=== PATIENT | male | born 1955 | race Caucasian/White ===

== ENCOUNTER → 2023-08-17 12:35 | Outpatient (CLI) | payer OTHER, SELFPAY ==
--- NOTE | 2023-08-17 12:40 | DI.RAD.S_ITS ---
PROCEDURE: XR KNEE LT 3V INDICATIONS: Left knee pain and swelling x 2 weeks, worse sup/med aspect TECHNIQUE: 3 views of the knee were acquired. COMPARISON: None. FINDINGS: Bones: No fractures or dislocations. Osteophytic lipping. No suspicious bony lesions. Soft tissues: Small joint effusion. No suspicious soft tissue calcifications. IMPRESSION: No acute osseous abnormality. Small joint effusion. Mild degenerative changes. Dictated by: Pipo Velasquez M.D. on 08/17/2023 at 13:14 Approved by: Pipo Velasquez M.D. on 08/17/2023 at 13:15
== END ==
PROVIDERS: Visit Provider Urology
DX: M25.462 Effusion, left knee (principal)
CPT/HCPCS: 73562

== ENCOUNTER → 2024-01-10 12:09 | Outpatient (CLI) | payer OTHER, SELFPAY ==
--- NOTE | 2024-01-10 12:10 | DI.MRI.S_ITS ---
PROCEDURE: MR KNEE LT WO CON INDICATIONS: LEFT KNEE PAIN TECHNIQUE: Noncontrast sagittal PD fast spin echo and T2 fast spin echo with fat saturation, sagittal 3-D FLASH with fat saturation; coronal T1 spin echo and PD fast spin echo with fat saturation, and axial PD fast spin echo with fat saturation through the knee. COMPARISON: [facility], CR, XR KNEE ARTHRITIC SERIES LT, 12/03/2023, 7:23. FINDINGS: Image quality: Excellent. Anterior cruciate ligament: Intact. Posterior cruciate ligament: Intact. Medial collateral ligament: Mild edema surrounding the proximal medial collateral ligament is compatible with a low-grade sprain. Lateral collateral ligament: Intact. Medial meniscus: Intact. Lateral meniscus: Intact. Medial and lateral tendons: The semimembranosus tendon insertions appear intact. Visualized portions of the pes anserinus tendons appear normal. The popliteus tendon is intact. Iliotibial band appears normal. Anterior structures: Mild patella kiet. The quadriceps and patellar tendons appear intact. No patellar subluxation. No femoral trochlear dysplasia or ventral trochlear prominence. Mild edema is seen at the superolateral aspect of the infrapatellar fat pad. Bones and cartilage: No bone marrow contusions or fractures. Medial femorotibial cartilage: High-grade cartilage irregularity is seen at the posterior weight-bearing portion of the medial femoral condyle with subchondral cystic changes superimposed on background moderate cartilage thinning throughout the medial compartment. Lateral femorotibial cartilage: Mild surface cartilage irregularity. Patellofemoral cartilage: Mild surface cartilage irregularity most notably at the trochlear groove and medial femoral trochlea. Soft tissues: Small joint effusion. Small medial popliteal cyst. Mild nonspecific prepatellar subcutaneous soft tissue edema. The visualized musculature is age-appropriate in bulk. IMPRESSION: 1. Low-grade sprain of the proximal medial collateral ligament. 2. 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 Mild grade 2 chondromalacia in the lateral and anterior compartments. 3. Cruciate ligaments are intact. No acute trabecular bone injury. No meniscal tear is seen. 4. Mild patella kiet. Mild edema is seen at the superolateral aspect of the infrapatellar fat pad, which can be seen in the setting of lateral femoral condyle-patellar tendon friction syndrome. 5. Small joint effusion. Small medial popliteal cyst. Approved by: Ney Lala M.D. on 01/10/2024 at 15:46
== END ==
LOC: MRI 12:09
PROVIDERS: Referring Provider Orthopaedic Surgery; Visit Provider Orthopaedic Surgery
DX: S83.412A Sprain of medial collateral ligament of left knee, initial encounter (principal); M23.92 Unspecified internal derangement of left knee; M25.562 Pain in left knee; M17.12 Unilateral primary osteoarthritis, left knee; M25.462 Effusion, left knee; M22.8X2 Other disorders of patella, left knee; M94.262 Chondromalacia, left knee; M71.22 Synovial cyst of popliteal space [Baker], left knee
CPT/HCPCS: 73721

== ENCOUNTER → 2024-01-24 10:34 | Outpatient (CLI) | payer OTHER, SELFPAY ==
[2024-01-24 12:02] LABS: Alanine Aminotransferase 47 IU/L (<50); Albumin 4.5 g/dL (3.5-5.0); Albumin Globulin Ratio 1.4 (1.0-2.8); Alkaline Phosphatase 135 U/L (38-126); Aspartate Aminotransferase 40 IU/L (17-59); BUN Creatinine Ratio 20.4 (6-22); Bilirubin Total 0.7 mg/dL (0.2-1.3); Blood Urea Nitrogen 21 mg/dL (9-20); Calcium 9.7 mg/dL (8.4-10.2); Carbon Dioxide 27 mmol/L (22-32); Chloride 102 mmol/L (98-107); Cholesterol 271 mg/dL (140-199); Estimated Glomerular Filt Rate > 60 mL/min (>60); Globulin 3.3 g/dL (1.7-4.1); Glucose 101 mg/dL (80-110); HDL Cholesterol 75 mg/dL (40-60); HEMOLYSIS < 15 (0-50); LDL Cholesterol Calculated 169 mg/dL (<100); Potassium 4.2 mmol/L (3.4-5.1); Sodium 137 mmol/L (137-145); Total Protein 7.8 g/dL (6.3-8.2); Triglycerides 133 mg/dL (35-150)
[2024-01-24 12:23] LABS: Free T3, Triiodothyronine Free 3.91 pg/mL (2.77-5.27); Free T4, Direct Thyroxine 0.89 ng/dL (0.78-2.19)
[2024-01-24 12:36] LABS: Thyroid Stimulating Hormone 2.32 uIU/mL (0.47-4.68)
[2024-01-24 15:11] LABS: Prostate Specific Antigen Scrn 3.37 ng/mL (0.1-4.0)
== END ==
PROVIDERS: PCP Nurse Practitioner; Referring Provider Urology; Visit Provider Urology
DX: E78.5 Hyperlipidemia, unspecified (principal); Z12.5 Encounter for screening for malignant neoplasm of prostate; I10 Essential (primary) hypertension
CPT/HCPCS: 36415; 80053; 80061; 84439; 84443; 84481; G0103

== ENCOUNTER 2025-01-22 11:18 | Emergency (ER) | payer MEDICARE, SELFPAY ==
[2025-01-22] VITALS (44 sets, daily range): BP systolic 87–128; BP diastolic 53–74; PULSE 68–95; RESP 14–28; TEMP 37.6–37.9; O2SAT 91–98; BMI 29.0
--- NOTE | 2025-01-22 11:29 | EKG_ITS ---
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
--- NOTE | 2025-01-22 12:03 | PC.NURSE ---
Pt presents after witnessed syncopal episode with fall. No injury reported or observed. Reports he has onset of fever on 01/21 and has been feeling crappy. Reports having heart burn on Saturday 01/20, then feeling chills/feverish and experiencing general malaise. Last took Tylenol at 0100 this morning for his symptoms. Has hx of Hypertension and takes clonidine, nifedipine, alopurinol, and losartan. Also recently started on flomax d/t urinary retention. Pt states he took his BP medication this AM as usual, though did feel light headed when he woke up.
[2025-01-22 12:40] LABS: Add Manual Diff / Slide Review NO; Hematocrit 45.8 % (41-53); Hemoglobin 15.6 g/dL (13.5-17.5); Lymphocytes Absolute Auto 3400 /uL (1100-4500); Mean Corpuscular HGB Conc 34.1 % (30-36); Mean Corpuscular Hemoglobin 32.2 PG (26-34); Mean Corpuscular Volume 94.4 fL (80-100); Platelet Count 205 X10^3/uL (150-400)
[2025-01-22 12:43] LABS: INR 1.1 (0.9-1.3); Prothrombin Time 12.5 SECONDS (9.4-12.5)
[2025-01-22 12:46] LABS: PTT Partial Thromboplastin Tim 25 SECONDS (25.1-36.5)
[2025-01-22] MEDS: SODIUM CHLORIDE 0.9% 943.47 ML IV (12:59)
--- NOTE | 2025-01-22 13:03 | DI.RAD.S_ITS ---
PROCEDURE: XR CHEST 2V INDICATIONS: sepsis TECHNIQUE: 2 views of the chest were acquired. COMPARISON: None. FINDINGS: Surgical changes and devices: None. Lungs and pleura: Lungs are clear. No pleural effusions or pneumothorax. Mediastinum: Mediastinal contours are normal. Heart size is normal. Bones and chest wall: No suspicious bony abnormalities. Soft tissues appear unremarkable. IMPRESSION: No acute pulmonary process. Dictated by: Joan Littlejohn M.D. on 01/22/2025 at 13:27 Approved by: Joan Littlejohn M.D. on 01/22/2025 at 13:27
--- NOTE | 2025-01-22 13:03 | ED.GENADULT ---
HPI - General Adult <Brandy Scott MD - Last Filed: 01/24/25 13:28> General Chief complaint: Syncope Stated complaint: Syncopal Episode Time Seen by Provider: 01/22/25 12:38 Source: patient and EMS Mode of arrival: EMS History of Present Illness HPI narrative: 69-year-old male presents to the emergency department with lightheadedness, general malaise and fatigue for several days. Today felt unwell, went to get some water and ?slid? down onto the floor in front of his , was unresponsive for 1-2 seconds, then came to alertness. Patient denies any respiratory infectious symptoms, dysuria. Had some abdominal pain and discomfort he attributed to acid reflex a couple of days ago that resolved with Tums. No abdominal or chest pain currently. No vomiting or diarrhea. No history of severe infection although did suffer from cat scratch fever decades ago. Denies IV drug use or tobacco use Related Data Home Medications ?Medication ?Instructions ?Recorded ?Confirmed vitamin D3 125 mcg (5,000 cap PO 09/24/23 01/02/25 unit)-vitamin K2 100 mcg capsule multivitamin (Daily Multi-Vitamin 1 tab PO DAILY 01/02/25 01/02/25 tablet) Previous Rx's ?Medication ?Instructions ?Recorded allopurinol 300 mg tablet 300 mg PO DAILY #90 tabs 05/06/24 tadalafil 5 mg tablet (Cialis) 5 mg PO DAILY #100 tabs 05/07/24 clonidine HCl 0.2 mg tablet 0.2 mg PO BID Hypertension #180 05/28/24 tabs telmisartan 80 mg tablet 80 mg PO DAILY Hypertension #100 08/01/24 tabs nifedipine 60 mg tablet,extended 60 mg PO DAILY for blood pressure 12/08/24 release 24 hr #90 tabs tamsulosin 0.4 mg capsule 0.4 mg PO DAILY #90 caps 01/02/25 Allergies Allergy/AdvReac Type Severity Reaction Status Date / Time erythromycin base AdvReac Mild Verified 01/02/25 07:47 Review of Systems <Brandy Scott MD - Last Filed: 01/24/25 13:28> Review of Systems Narrative: Pertinent ROS obtained and negative except as stated in HPI Patient History <Brandy Scott MD - Last Filed: 01/24/25 13:28> Medical History Incomplete emptying of bladder Secondhand smoke exposure History of tobacco use Post-void dribbling Urge incontinence Intermittent urinary stream Weak urinary stream BPH with obstruction/lower urinary tract symptoms History of nephrolithiasis Hx of gout Hx of skin cancer, basal cell Erectile dysfunction BPH (benign prostatic hyperplasia) Hypertension Surgical History Hx of circumcision History of melanoma excision Family History Mother Cancer Father Hypertension Renal failure Social History marital status: number of children: 1 Smoking Status: Never smoker alcohol intake: current caffeine: Yes Type(s) of exercise: aerobic and regular exercise frequency: 3-4 times per week duration: 60-90 minutes/day Smoking Status: Never smoker Exam <Brandy Scott MD - Last Filed: 01/24/25 13:28> Initial Vital Signs Initial Vital Signs: Vital Signs Pulse Rate 77 01/22/25 11:24 Blood Pressure 125/56 L 01/22/25 11:24 Pulse Oximetry 93 01/22/25 11:24 Constitutional: Ill appearing, NC in place, non-toxic, no acute distress Head: NCAT, no nuchal rigidity Cardiovascular: RRR, no murmur or rub Pulmonary: Crackles at the right greater than left base Abdominal: soft, non-tender, does not react to palpation of the abdomen Extremities: No LE edema Skin: warm and dry, no diaphoresis Neurological: Alert and oriented x3, no nuchal rigidity <Shukri Bonner MD - Last Filed: 01/23/25 04:45> Initial Vital Signs Initial Vital Signs: Vital Signs Pulse Rate 77 01/22/25 11:24 Blood Pressure 125/56 L 01/22/25 11:24 Pulse Oximetry 93 01/22/25 11:24 Course <Brandy Scott MD - Last Filed: 01/24/25 13:28> Orders Ordered: Discontinued Medications Acetaminophen (Acetaminophen 325 Mg Tablet) 650 mg PO Q6H PRN PRN Reason: Fever/Mild Pain (1-3) Heparin Sodium (Porcine) (Heparin 5,000 Unit/Ml Vial) 5,000 unit IV NOW ONE Stop: 01/22/25 14:03 Last Admin: 01/22/25 14:27 Dose: 5,000 unit Documented By: JEFFREY Piperacillin Sod/Tazobactam (Sod 4.5 gm/ Sodium Chloride) 100 mls @ 200 mls/hr IV NOW ONE Stop: 01/22/25 12:51 Last Infusion: 01/22/25 14:30 Dose: Infused Documented By: Admin: 01/22/25 13:18 Dose: 200 mls/hr Documented By: BLANCO Sodium Chloride (Normal Saline 0.9%) 2,830.41 mls @ 943.47 mls/hr 30 ml/kg infuse over 3 hr (2830.41 ml) IV NOW ONE Stop: 01/22/25 15:53 Last Infusion: 01/22/25 14:03 Dose: Infused Documented By: Admin: 01/22/25 12:59 Dose: 943.47 mls/hr Documented By: JEFFREY Vancomycin HCl/Dextrose (Vancomycin) 2,000 mg in 400 mls @ 200 mls/hr IV NOW ONE Stop: 01/22/25 15:14 Last Infusion: 01/22/25 16:49 Dose: Infused Documented By: Admin: 01/22/25 14:34 Dose: 200 mls/hr Documented By: JEFFREY Heparin Sodium/Dextrose (Heparin Drip) 25,000 unit in 500 mls @ 19.813 mls/hr IV CONT MICHELLE; Protocol Last Titration: 01/23/25 00:46 Dose: Infused Documented By: SETH Co-signed By: CANDICE Admin: 01/22/25 14:27 Dose: 10.49 units/kg/hr, 19.8 mls/hr Documented By: JEFFREY Co-signed By: RB Sodium Chloride (Normal Saline 0.45%) 1,000 mls @ 100 mls/hr IV CONT MICHELLE Last Admin: 01/22/25 17:39 Dose: Not Given Documented By: RB Piperacillin Sod/Tazobactam (Sod 4.5 gm/ Sodium Chloride) 100 mls @ 25 mls/hr IV Q8H MICHELLE Last Admin: 01/22/25 17:38 Dose: Not Given Documented By: RB Naloxone HCl (Naloxone 0.4 Mg/Ml Vial) 0.2 mg IV Q2MIN PRN PRN Reason: Opiate Reversal Ondansetron HCl (Ondansetron 4 Mg/2 Ml Inj) 4 mg IV Q8HR PRN PRN Reason: Nausea And Vomiting Vancomycin HCl (Vancomycin Per Pharmacy) 1 request MISC NOW ONE Stop: 01/22/25 12:51 Last Admin: 01/22/25 13:53 Dose: Not Given Documented By: RB Vital Signs Vital signs: Vital Signs - 8 hr 01/22/25 21:00 01/22/25 21:00 01/22/25 21:30 Pulse Rate 81 79 Respiratory Rate 25 H 21 Blood Pressure 112/63 Pulse Oximetry 92 Oxygen Delivery Method 01/22/25 22:00 01/22/25 22:00 01/22/25 22:29 Pulse Rate 83 80 Respiratory Rate 23 23 Blood Pressure 98/74 Pulse Oximetry 92 92 Oxygen Delivery Method 01/22/25 22:30 01/22/25 22:31 01/22/25 23:00 Pulse Rate 80 95 H Respiratory Rate 25 H Blood Pressure 128/74 Pulse Oximetry 93 94 Oxygen Delivery Method Room Air 01/22/25 23:00 01/22/25 23:30 01/22/25 23:30 Pulse Rate 91 H Respiratory Rate 19 Blood Pressure 123/67 127/67 Pulse Oximetry 95 Oxygen Delivery Method 01/23/25 00:00 01/23/25 00:00 01/23/25 00:30 Pulse Rate 85 87 Respiratory Rate 16 16 Blood Pressure 111/59 L Pulse Oximetry 94 94 Oxygen Delivery Method 01/23/25 00:30 Pulse Rate Respiratory Rate Blood Pressure 133/70 Pulse Oximetry Oxygen Delivery Method <Shukri Bonner MD - Last Filed: 01/23/25 04:45> Course Course Narrative: 20:00 Patient care transferred be at the change of shift by Dr. Scott, with disposition pending. This is a 69-year-old male patient with a history of hypertension, melanoma, BPH who complains of 2-3 days of heartburn, nausea, weakness with no energy and slight fever and chills. No cough, vomiting or diarrhea. No sore throat or congestion. To this point, patient has had lab work revealing WBCs 31072 with 70% neutrophils. CMP revealing creatinine 1.44 with GFR of 53, initial troponin 57.8, 2nd troponin 47.8. BNP 21 40. EKG reveals Q-waves in the inferior leads but no other ischemic changes. Chest x-ray clear. Patient has been diagnosed with non STEMI that is currently stable. Also possible sepsis given the elevated white count. Lactate is negative. Consults were obtained from our law firm consultant and from our hospitalist. The hospitalist feels the patient needs to go where they have cardiac catheterization capability. We are seeking transfer. 20:20 I discussed the patient's care with Dr. Hoff, cardiology at [facility] who feels the patient is appropriate for transfer to their hospital via the hospitalist. We are awaiting call back from the hospitalist. 21:45 I discussed the patient's care with Dr. Wang, hospitalist at [facility] who accepts the transfer for non-STEMI with possible sepsis and with a brief syncopal episode. Patient is currently stable with a heart rate of 75 and systolic blood pressure 115. Orders Ordered: Discontinued Medications Acetaminophen (Acetaminophen 325 Mg Tablet) 650 mg PO Q6H PRN PRN Reason: Fever/Mild Pain (1-3) Heparin Sodium (Porcine) (Heparin 5,000 Unit/Ml Vial) 5,000 unit IV NOW ONE Stop: 01/22/25 14:03 Last Admin: 01/22/25 14:27 Dose: 5,000 unit Documented By: EB Piperacillin Sod/Tazobactam (Sod 4.5 gm/ Sodium Chloride) 100 mls @ 200 mls/hr IV NOW ONE Stop: 01/22/25 12:51 Last Infusion: 01/22/25 14:30 Dose: Infused Documented By: Admin: 01/22/25 13:18 Dose: 200 mls/hr Documented By: [facility] Sodium Chloride (Normal Saline 0.9%) 2,830.41 mls @ 943.47 mls/hr 30 ml/kg infuse over 3 hr (2830.41 ml) IV NOW ONE Stop: 01/22/25 15:53 Last Infusion: 01/22/25 14:03 Dose: Infused Documented By: Admin: 01/22/25 12:59 Dose: 943.47 mls/hr Documented By: EB Vancomycin HCl/Dextrose (Vancomycin) 2,000 mg in 400 mls @ 200 mls/hr IV NOW ONE Stop: 01/22/25 15:14 Last Infusion: 01/22/25 16:49 Dose: Infused Documented By: Admin: 01/22/25 14:34 Dose: 200 mls/hr Documented By: JEFFREY Heparin Sodium/Dextrose (Heparin Drip) 25,000 unit in 500 mls @ 19.813 mls/hr IV CONT MICHELLE; Protocol Last Titration: 01/23/25 00:46 Dose: Infused Documented By: SETH Co-signed By: CANDICE Admin: 01/22/25 14:27 Dose: 10.49 units/kg/hr, 19.8 mls/hr Documented By: JEFFREY Co-signed By: FRIEDA Sodium Chloride (Normal Saline 0.45%) 1,000 mls @ 100 mls/hr IV CONT MICHELLE Last Admin: 01/22/25 17:39 Dose: Not Given Documented By: RB Piperacillin Sod/Tazobactam (Sod 4.5 gm/ Sodium Chloride) 100 mls @ 25 mls/hr IV Q8H MICHELLE Last Admin: 01/22/25 17:38 Dose: Not Given Documented By: FRIEDA Naloxone HCl (Naloxone 0.4 Mg/Ml Vial) 0.2 mg IV Q2MIN PRN PRN Reason: Opiate Reversal Ondansetron HCl (Ondansetron 4 Mg/2 Ml Inj) 4 mg IV Q8HR PRN PRN Reason: Nausea And Vomiting Vancomycin HCl (Vancomycin Per Pharmacy) 1 request MISC NOW ONE Stop: 01/22/25 12:51 Last Admin: 01/22/25 13:53 Dose: Not Given Documented By: FRIEDA Vital Signs Vital signs: Vital Signs - 8 hr 01/22/25 21:00 01/22/25 21:00 01/22/25 21:30 Pulse Rate 81 79 Respiratory Rate 25 H 21 Blood Pressure 112/63 Pulse Oximetry 92 Oxygen Delivery Method 01/22/25 22:00 01/22/25 22:00 01/22/25 22:29 Pulse Rate 83 80 Respiratory Rate 23 23 Blood Pressure 98/74 Pulse Oximetry 92 92 Oxygen Delivery Method 01/22/25 22:30 01/22/25 22:31 01/22/25 23:00 Pulse Rate 80 95 H Respiratory Rate 25 H Blood Pressure 128/74 Pulse Oximetry 93 94 Oxygen Delivery Method Room Air 01/22/25 23:00 01/22/25 23:30 01/22/25 23:30 Pulse Rate 91 H Respiratory Rate 19 Blood Pressure 123/67 127/67 Pulse Oximetry 95 Oxygen Delivery Method 01/23/25 00:00 01/23/25 00:00 01/23/25 00:30 Pulse Rate 85 87 Respiratory Rate 16 16 Blood Pressure 111/59 L Pulse Oximetry 94 94 Oxygen Delivery Method 01/23/25 00:30 Pulse Rate Respiratory Rate Blood Pressure 133/70 Pulse Oximetry Oxygen Delivery Method Medical Decision Making <Brandy Scott MD - Last Filed: 01/24/25 13:28> Lab Data 01/22/25 11:20 01/22/25 11:20 Labs: Lab Results 01/22/25 01/22/25 01/22/25 Range/Units 11:20 11:20 13:05 WBC 18.0 H (4.5-11.0) X10^3/uL RBC 4.86 (4.5-5.9) X10^6/uL Hgb 15.6 (13.5-17.5) g/dL Hct 45.8 (41-53) % MCV 94.4 (80-100) fL MCH 32.2 (26-34) PG MCHC 34.1 (30-36) % RDW 14.0 (11.6-14.8) % Plt Count 205 (150-400) X10^3/uL Neut % (Auto) 69.8 (50-75) % Lymph % (Auto) 19.0 L (25-40) % [place] % (Auto) 10.9 (3-14) % Eos % (Auto) 0.0 L (2-4) % Baso % (Auto) 0.3 (0-2) % Neut # (Auto) 78067 H (4813-4321) /uL Lymph # (Auto) 3400 (1691-1020) /uL [place] # (Auto) 2000 H (0-900) /uL Eos # (Auto) 0 (0-450) /uL Baso # (Auto) 100 (0-100) /uL PT 12.5 (9.4-12.5) SECONDS INR 1.1 (0.9-1.3) APTT 25 L (25.1-36.5) SECONDS Sodium 136 L (137-145) mmol/L Potassium 4.1 (3.4-5.1) mmol/L Chloride 101 (98-107) mmol/L Carbon Dioxide 27 (22-32) mmol/L BUN 21 H (9-20) mg/dL Creatinine 1.44 H (0.66-1.25) mg/dL Estimated GFR 53 L (>60) mL/min BUN/Creatinine Ratio 14.6 (6-22) Glucose 170 H (70-99) mg/dL Lactate 1.8 (0.7-2.1) mmol/L Calcium 9.6 (8.4-10.2) mg/dL Magnesium 1.9 (1.6-2.3) mg/dL Total Bilirubin 1.4 H (0.2-1.3) mg/dL AST 337 H (17-59) IU/L ALT 84 H (<50) IU/L Alkaline Phosphatase 111 (38-126) U/L Total Creatine Kinase 1391 H (55-170) U/L Troponin I 57.800 H* (0.01-0.034) ng/mL NT-Pro-B Natriuret Pep 2140 H Cancelled (<125) pg/mL Total Protein 8.0 (6.3-8.2) g/dL Albumin 4.6 (3.5-5.0) g/dL Globulin 3.4 (1.7-4.1) g/dL Albumin/Globulin Ratio 1.4 (1.0-2.8) Lipase 52 (23-300) U/L Procalcitonin 0.306 (<0.5) ng/mL Urine Color Urine Appearance Urine pH (4.5-8.0) Ur Specific [place] (1.000-1.035) Urine Protein (Negative) Urine Glucose (UA) (Negative) g/dL Urine Ketones (NEGATIVE) Urine Occult Blood (Negative) Urine Nitrate (Negative) Urine Bilirubin (NEGATIVE) Urine Urobilinogen (0.2) E.U./dL Ur Leukocyte Esterase (NEGATIVE) Urine RBC (0-5/HPF) Urine WBC (0-5/HPF) Ur Squamous Epith Cells (0-5/HPF) Urine Bacteria (None) Ur Culture Indicated? Vol Urine Centrifuged 01/22/25 01/22/25 01/22/25 Range/Units 14:05 18:35 20:30 WBC (4.5-11.0) X10^3/uL RBC (4.5-5.9) X10^6/uL Hgb (13.5-17.5) g/dL Hct (41-53) % MCV (80-100) fL MCH (26-34) PG MCHC (30-36) % RDW (11.6-14.8) % Plt Count (150-400) X10^3/uL Neut % (Auto) (50-75) % Lymph % (Auto) (25-40) % [place] % (Auto) (3-14) % Eos % (Auto) (2-4) % Baso % (Auto) (0-2) % Neut # (Auto) (1571-3385) /uL Lymph # (Auto) (8527-7691) /uL [place] # (Auto) (0-900) /uL Eos # (Auto) (0-450) /uL Baso # (Auto) (0-100) /uL PT (9.4-12.5) SECONDS INR (0.9-1.3) APTT 50 H D (25.1-36.5) SECONDS Sodium (137-145) mmol/L Potassium (3.4-5.1) mmol/L Chloride (98-107) mmol/L Carbon Dioxide (22-32) mmol/L BUN (9-20) mg/dL Creatinine (0.66-1.25) mg/dL Estimated GFR (>60) mL/min BUN/Creatinine Ratio (6-22) Glucose (70-99) mg/dL Lactate (0.7-2.1) mmol/L Calcium (8.4-10.2) mg/dL Magnesium (1.6-2.3) mg/dL Total Bilirubin (0.2-1.3) mg/dL AST (17-59) IU/L ALT (<50) IU/L Alkaline Phosphatase (38-126) U/L Total Creatine Kinase (55-170) U/L Troponin I 47.800 H* (0.01-0.034) ng/mL NT-Pro-B Natriuret Pep (<125) pg/mL Total Protein (6.3-8.2) g/dL Albumin (3.5-5.0) g/dL Globulin (1.7-4.1) g/dL Albumin/Globulin Ratio (1.0-2.8) Lipase (23-300) U/L Procalcitonin (<0.5) ng/mL Urine Color Yellow Urine Appearance Clear Urine pH 6.0 (4.5-8.0) Ur Specific [place] 1.020 (1.000-1.035) Urine Protein Negative (Negative) Urine Glucose (UA) Negative (Negative) g/dL Urine Ketones Negative (NEGATIVE) Urine Occult Blood Negative (Negative) Urine Nitrate Negative (Negative) Urine Bilirubin Negative (NEGATIVE) Urine Urobilinogen 1.0 (0.2) E.U./dL Ur Leukocyte Esterase Negative (NEGATIVE) Urine RBC None seen (0-5/HPF) Urine WBC 0-1/hpf (0-5/HPF) Ur Squamous Epith Cells 0-1 /hpf (0-5/HPF) Urine Bacteria None seen (None) Ur Culture Indicated? Cult not indicated Vol Urine Centrifuged 10ml (spun) MDM Narrative Medical decision making narrative: In brief, this is a 69-year-old male with history of BPH, hypertension, here with a general malaise for several days and subjective fevers at home On arrival to the emergency department, the patient is alert and oriented x3, noted to be hypotensive and hypoxic, placed on NC Exam is pertinent for: Hypotension although appears well-perfused, no nuchal rigidity or severe headache, abdominal exam is benign, denies CP Differential diagnoses considered but not limited to: Infection, severe infection, viral syndrome, cardiac arrhythmia, electrolyte or metabolic derangement, shock Initial treatment plan includes: Resuscitate with IV fluids, sepsis screening laboratories, urinalysis, two-view chest x-ray EKG 1129 sinus rhythm rate of 75, normal intervals, normal axis, Q-waves noted in inferior leads, T-wave inversion in V6, no prior EKG for comparison. Q waves inferior leads. Laboratories pertinent for: Leukocytosis of 18,000, no anemia, BUN creatinine elevation 21/1.44, glucose 170, transaminitis with bilirubin 1.4, AST 337, ALT 84. Initial troponin critically elevated at 57, 2nd troponin 47, BNP slightly elevated, lipase nonelevated Discussed case with law firm consultant who reviewed his EKG, elevated troponin, does agree with initiate heparin drip after initial troponin returns significantly elevated. With IVF, pt's BP has normalized. Imaging pertinent for: Chest x-ray negative Abdominal ultrasound Gallbladder: No gallstones. No wall thickening. No pericholecystic edema. Negative sonographic Saldivar's sign. Biliary ducts: Intrahepatic bile ducts are non-dilated. Extrahepatic bile duct caliber measures 4 mm. Normal is 6-7 mm or less in diameter, or 10 mm or less post-cholecystectomy. Hospitalist had initially accepted patient, later declined due to concern for cardiogenic shock in the setting of significant troponin elevation/dyspepsia a few days ago, and need for transferred to Cardiac Center. [employer] was involved again and did support transfer Patient here remains on heparin drip. He remains chest pain-free. Vital signs have stabilized. Blood pressure remains adequate. He understands and agrees with need for transfer. I discussed the patient's care with law firm consultant and hospitalist at [facility] and they have accepted the transfer for non STEMI and possible sepsis. Also brief syncopal episode. Patient currently stable with reassuring vital signs. No chest pain currently. Additional Information: Upon my evaluation, this patient had a high probability of imminent or life-threatening deterioration due to NSTEMI which required my direct attention, intervention, and personal management. I have personally provided 50 minutes of critical care time exclusive of time spent on separately billable procedures. Time includes review of laboratory data, radiology results, discussion with consultants, and monitoring for potential decompensation. Interventions were performed as documented above. -Radha Scott MD <Shukri Bonner MD - Last Filed: 01/23/25 04:45> Lab Data Labs: Lab Results 01/22/25 01/22/25 01/22/25 Range/Units 11:20 11:20 13:05 WBC 18.0 H (4.5-11.0) X10^3/uL RBC 4.86 (4.5-5.9) X10^6/uL Hgb 15.6 (13.5-17.5) g/dL Hct 45.8 (41-53) % MCV 94.4 (80-100) fL MCH 32.2 (26-34) PG MCHC 34.1 (30-36) % RDW 14.0 (11.6-14.8) % Plt Count 205 (150-400) X10^3/uL Neut % (Auto) 69.8 (50-75) % Lymph % (Auto) 19.0 L (25-40) % [place] % (Auto) 10.9 (3-14) % Eos % (Auto) 0.0 L (2-4) % Baso % (Auto) 0.3 (0-2) % Neut # (Auto) 37046 H (8532-4776) /uL Lymph # (Auto) 3400 (8026-4549) /uL [place] # (Auto) 2000 H (0-900) /uL Eos # (Auto) 0 (0-450) /uL Baso # (Auto) 100 (0-100) /uL PT 12.5 (9.4-12.5) SECONDS INR 1.1 (0.9-1.3) APTT 25 L (25.1-36.5) SECONDS Sodium 136 L (137-145) mmol/L Potassium 4.1 (3.4-5.1) mmol/L Chloride 101 (98-107) mmol/L Carbon Dioxide 27 (22-32) mmol/L BUN 21 H (9-20) mg/dL Creatinine 1.44 H (0.66-1.25) mg/dL Estimated GFR 53 L (>60) mL/min BUN/Creatinine Ratio 14.6 (6-22) Glucose 170 H (70-99) mg/dL Lactate 1.8 (0.7-2.1) mmol/L Calcium 9.6 (8.4-10.2) mg/dL Magnesium 1.9 (1.6-2.3) mg/dL Total Bilirubin 1.4 H (0.2-1.3) mg/dL AST 337 H (17-59) IU/L ALT 84 H (<50) IU/L Alkaline Phosphatase 111 (38-126) U/L Total Creatine Kinase 1391 H (55-170) U/L Troponin I 57.800 H* (0.01-0.034) ng/mL NT-Pro-B Natriuret Pep 2140 H Cancelled (<125) pg/mL Total Protein 8.0 (6.3-8.2) g/dL Albumin 4.6 (3.5-5.0) g/dL Globulin 3.4 (1.7-4.1) g/dL Albumin/Globulin Ratio 1.4 (1.0-2.8) Lipase 52 (23-300) U/L Procalcitonin 0.306 (<0.5) ng/mL Urine Color Urine Appearance Urine pH (4.5-8.0) Ur Specific [place] (1.000-1.035) Urine Protein (Negative) Urine Glucose (UA) (Negative) g/dL Urine Ketones (NEGATIVE) Urine Occult Blood (Negative) Urine Nitrate (Negative) Urine Bilirubin (NEGATIVE) Urine Urobilinogen (0.2) E.U./dL Ur Leukocyte Esterase (NEGATIVE) Urine RBC (0-5/HPF) Urine WBC (0-5/HPF) Ur Squamous Epith Cells (0-5/HPF) Urine Bacteria (None) Ur Culture Indicated? Vol Urine Centrifuged 01/22/25 01/22/25 01/22/25 Range/Units 14:05 18:35 20:30 WBC (4.5-11.0) X10^3/uL RBC (4.5-5.9) X10^6/uL Hgb (13.5-17.5) g/dL Hct (41-53) % MCV (80-100) fL MCH (26-34) PG MCHC (30-36) % RDW (11.6-14.8) % Plt Count (150-400) X10^3/uL Neut % (Auto) (50-75) % Lymph % (Auto) (25-40) % [place] % (Auto) (3-14) % Eos % (Auto) (2-4) % Baso % (Auto) (0-2) % Neut # (Auto) (7210-9704) /uL Lymph # (Auto) (5562-4156) /uL [place] # (Auto) (0-900) /uL Eos # (Auto) (0-450) /uL Baso # (Auto) (0-100) /uL PT (9.4-12.5) SECONDS INR (0.9-1.3) APTT 50 H D (25.1-36.5) SECONDS Sodium (137-145) mmol/L Potassium (3.4-5.1) mmol/L Chloride (98-107) mmol/L Carbon Dioxide (22-32) mmol/L BUN (9-20) mg/dL Creatinine (0.66-1.25) mg/dL Estimated GFR (>60) mL/min BUN/Creatinine Ratio (6-22) Glucose (70-99) mg/dL Lactate (0.7-2.1) mmol/L Calcium (8.4-10.2) mg/dL Magnesium (1.6-2.3) mg/dL Total Bilirubin (0.2-1.3) mg/dL AST (17-59) IU/L ALT (<50) IU/L Alkaline Phosphatase (38-126) U/L Total Creatine Kinase (55-170) U/L Troponin I 47.800 H* (0.01-0.034) ng/mL NT-Pro-B Natriuret Pep (<125) pg/mL Total Protein (6.3-8.2) g/dL Albumin (3.5-5.0) g/dL Globulin (1.7-4.1) g/dL Albumin/Globulin Ratio (1.0-2.8) Lipase (23-300) U/L Procalcitonin (<0.5) ng/mL Urine Color Yellow Urine Appearance Clear Urine pH 6.0 (4.5-8.0) Ur Specific [place] 1.020 (1.000-1.035) Urine Protein Negative (Negative) Urine Glucose (UA) Negative (Negative) g/dL Urine Ketones Negative (NEGATIVE) Urine Occult Blood Negative (Negative) Urine Nitrate Negative (Negative) Urine Bilirubin Negative (NEGATIVE) Urine Urobilinogen 1.0 (0.2) E.U./dL Ur Leukocyte Esterase Negative (NEGATIVE) Urine RBC None seen (0-5/HPF) Urine WBC 0-1/hpf (0-5/HPF) Ur Squamous Epith Cells 0-1 /hpf (0-5/HPF) Urine Bacteria None seen (None) Ur Culture Indicated? Cult not indicated Vol Urine Centrifuged 10ml (spun) MDM Narrative Medical decision making narrative: In brief, this is a 69-year-old male with history of BPH, hypertension, here with a general malaise for several days and subjective fevers at home On arrival to the emergency department, the patient is alert and oriented x3, noted to be hypotensive Exam is pertinent for: Hypotension although appears well-perfused, no nuchal rigidity or severe headache, abdominal exam is benign Differential diagnoses considered but not limited to: Infection, severe infection, viral syndrome, cardiac arrhythmia Initial treatment plan includes: IV fluids, sepsis screening laboratories, urinalysis, two-view chest x-ray EKG 1129 sinus rhythm rate of 75, normal intervals, normal axis, Q-waves noted in inferior leads, T-wave inversion in V6, no prior EKG for comparison. Q waves inferior leads. Laboratories pertinent for: Leukocytosis of 18,000, no anemia, BUN creatinine elevation 21/1.44, glucose 170, transaminitis with bilirubin 1.4, AST 337, ALT 84. Initial troponin critically elevated at 57, 2nd troponin 47, BNP slightly elevated, lipase nonelevated Discussed case with law firm consultant who reviewed his EKG, elevated troponin, does recommend initiate heparin drip after initial troponin returns significantly elevated Imaging pertinent for: Chest x-ray negative Abdominal ultrasound Gallbladder: No gallstones. No wall thickening. No pericholecystic edema. Negative sonographic Saldivar's sign. Biliary ducts: Intrahepatic bile ducts are non-dilated. Extrahepatic bile duct caliber measures 4 mm. Normal is 6-7 mm or less in diameter, or 10 mm or less post-cholecystectomy. Hospitalist had initially accepted patient, later declined due to concern for cardiogenic shock in the setting of significant troponin elevation and need for transferred to Cardiac Center. [employer] was involved again and did support transfer Patient here remains on heparin drip. He remains chest pain-free. Vital signs have stabilized. Blood pressure remains adequate. He understands and agrees with need for transfer. I discussed the patient's care with law firm consultant and hospitalist at [facility] and they have accepted the transfer for non STEMI and possible sepsis. Also brief syncopal episode. Patient currently stable with reassuring vital signs. No chest pain currently. Discharge Plan Departure Patient Disposition: [facility] [facility] Clinical Impression: Acute non-ST elevation myocardial infarction (NSTEMI), Sepsis, Syncope Prescriptions: No Action allopurinol 300 mg tablet 300 mg PO DAILY Qty: 90 3RF tadalafil [Cialis] 5 mg tablet 5 mg PO DAILY Qty: 100 3RF clonidine HCl 0.2 mg tablet 0.2 mg PO BID Qty: 180 3RF telmisartan 80 mg tablet 80 mg PO DAILY Qty: 100 3RF nifedipine 60 mg tablet extended release 24hr 60 mg PO DAILY Qty: 90 3RF vitamin D3-vitamin K2 125 mcg (5,000 unit)-100 mcg capsule PO multivitamin [Daily Multi-Vitamin] Tablet 1 tab PO DAILY tamsulosin 0.4 mg capsule 0.4 mg PO DAILY Qty: 90 0RF Referrals: Jeanine Valdez MD [Primary Care Provider, Family Practice]
[2025-01-22 13:15] LABS: Alanine Aminotransferase 84 IU/L (<50); Albumin 4.6 g/dL (3.5-5.0); Albumin Globulin Ratio 1.4 (1.0-2.8); Alkaline Phosphatase 111 U/L (38-126); Blood Urea Nitrogen 21 mg/dL (9-20); Calcium 9.6 mg/dL (8.4-10.2); Carbon Dioxide 27 mmol/L (22-32); Chloride 101 mmol/L (98-107); Creatine Kinase 1391 U/L (55-170); Estimated Glomerular Filt Rate 53 mL/min (>60); Globulin 3.4 g/dL (1.7-4.1); Glucose 170 mg/dL (70-99); HEMOLYSIS 19 (0-50); Lipase 52 U/L (23-300); Magnesium 1.9 mg/dL (1.6-2.3); Potassium 4.1 mmol/L (3.4-5.1); Sodium 136 mmol/L (137-145); Total Protein 8.0 g/dL (6.3-8.2)
[2025-01-22] MEDS: PIPERACILLIN/TAZO 4.5 GM in SODIUM CHLORIDE 0.9% 100 ML IV (13:18)
[2025-01-22 13:26] LABS: NT-proBNP (BNP-Adult 18+) 2140 pg/mL (<125)
[2025-01-22 13:36] LABS: Lactate (Lactic Acid) 1.8 mmol/L (0.7-2.1)
[2025-01-22 13:45] LABS: Procalcitonin 0.306 ng/mL (<0.5)
[2025-01-22 13:50] LABS: Troponin I 57.800 ng/mL (0.01-0.034)
--- NOTE | 2025-01-22 14:03 | PC.NURSE ---
This RN asked provider about patient normal saline infusion due to lab results. Provider asked this RN to immediately stop the normal saline infusion. This RN stopped the infusion per verbal order and completed the infusion.
[2025-01-22] MEDS: HEPARIN 5,000 UNIT/ML VIAL 5000 UNIT IV (14:27)
[2025-01-22] MEDS: HEPARIN DRIP 25,000 UNIT/500 ML IV.SOLN 19.8 UNIT IV (14:27)
[2025-01-22] MEDS: VANCOMYCIN 2,000 MG/400 ML PIGGYBACK 200 MG IV (14:34)
[2025-01-22 14:36] LABS: Troponin I 47.800 ng/mL (0.01-0.034)
--- NOTE | 2025-01-22 14:59 | DI.US.S_ITS ---
PROCEDURE: US ABDOMEN LIMITED INDICATIONS: ruq TECHNIQUE: Real-time scanning was performed of the abdominal and retroperitoneal organs, with image documentation. COMPARISON: None. FINDINGS: Liver: Liver is mildly enlarged at 18.9 cm and is diffusely increased in echogenicity with posterior acoustic attenuation. Gallbladder: No gallstones. No wall thickening. No pericholecystic edema. Negative sonographic Saldivar's sign. Biliary ducts: Intrahepatic bile ducts are non-dilated. Extrahepatic bile duct caliber measures 4 mm. Normal is 6-7 mm or less in diameter, or 10 mm or less post-cholecystectomy. Pancreas: Visualized portions of the pancreas are sonographically normal. Miscellaneous: No free abdominal fluid. IMPRESSION: Diffusely increased hepatic echogenicity is nonspecific, but most commonly encountered in the setting of hepatic steatosis. However, other causes of hepatocellular disease are not excluded. Recommend clinical correlation. Approved by: Ney Lala M.D. on 01/22/2025 at 16:01
--- NOTE | 2025-01-22 16:44 | PM.HP.1 ---
History of Present Illness History of Present Illness Date Patient Seen: 01/22/25 Chief complaint: Syncopal Episode [facility] Medical History Incomplete emptying of bladder Secondhand smoke exposure History of tobacco use Post-void dribbling Urge incontinence Intermittent urinary stream Weak urinary stream BPH with obstruction/lower urinary tract symptoms History of nephrolithiasis Hx of gout Hx of skin cancer, basal cell Erectile dysfunction BPH (benign prostatic hyperplasia) Hypertension Surgical History Hx of circumcision History of melanoma excision Family History Mother Cancer Father Hypertension Renal failure Social History marital status: number of children: 1 Smoking Status: Never smoker alcohol intake: current caffeine: Yes Type(s) of exercise: aerobic and regular exercise frequency: 3-4 times per week duration: 60-90 minutes/day Meds Home Medications and Allergies Home Medications ?Medication ?Instructions ?Recorded ?Confirmed ?Type vitamin D3 125 mcg (5,000 cap PO 09/24/23 01/02/25 History unit)-vitamin K2 100 mcg capsule allopurinol 300 mg tablet 300 mg PO DAILY #90 tabs 05/06/24 01/02/25 Rx tadalafil 5 mg tablet (Cialis) 5 mg PO DAILY #100 tabs 05/07/24 01/02/25 Rx clonidine HCl 0.2 mg tablet 0.2 mg PO BID Hypertension #180 05/28/24 01/02/25 Rx tabs telmisartan 80 mg tablet 80 mg PO DAILY Hypertension #100 08/01/24 01/02/25 Rx tabs nifedipine 60 mg tablet,extended 60 mg PO DAILY for blood pressure 12/08/24 01/02/25 Rx release 24 hr #90 tabs multivitamin (Daily Multi-Vitamin 1 tab PO DAILY 01/02/25 01/02/25 History tablet) tamsulosin 0.4 mg capsule 0.4 mg PO DAILY #90 caps 01/02/25 01/02/25 Rx Allergies Allergy/AdvReac Type Severity Reaction Status Date / Time erythromycin base AdvReac Mild Verified 01/02/25 07:47 Review of Systems Review of Systems Narrative: All else reviewed and otherwise unremarkable except as noted in the history and physical. Exam Vital Signs (past 8 hours): - 01/22/25 11:24 01/22/25 11:24 01/22/25 11:27 Temperature 99.7 F H Pulse Rate 77 75 Respiratory Rate 16 Blood Pressure 125/56 L 125/56 L Pulse Oximetry 93 93 Oxygen Delivery Method Room Air Oxygen Flow Rate 01/22/25 11:30 01/22/25 11:30 01/22/25 12:00 Temperature Pulse Rate 74 74 Respiratory Rate 28 H 24 Blood Pressure 105/53 L Pulse Oximetry 91 93 Oxygen Delivery Method Nasal Cannula Oxygen Flow Rate 2 2 01/22/25 12:00 01/22/25 12:30 01/22/25 12:30 Temperature Pulse Rate 76 Respiratory Rate 16 Blood Pressure 93/55 L 87/56 L Pulse Oximetry 96 Oxygen Delivery Method Nasal Cannula Oxygen Flow Rate 2 01/22/25 12:32 01/22/25 12:32 01/22/25 13:00 Temperature Pulse Rate 80 82 Respiratory Rate 26 H 14 Blood Pressure 92/56 L Pulse Oximetry 95 95 Oxygen Delivery Method Nasal Cannula Oxygen Flow Rate 2 01/22/25 13:00 01/22/25 13:30 01/22/25 13:42 Temperature Pulse Rate 73 68 Respiratory Rate 22 23 Blood Pressure 96/66 Pulse Oximetry 98 98 Oxygen Delivery Method Oxygen Flow Rate 01/22/25 13:42 01/22/25 13:45 01/22/25 13:45 Temperature Pulse Rate 71 Respiratory Rate 16 14 Blood Pressure 94/56 L 99/60 Pulse Oximetry 98 Oxygen Delivery Method Nasal Cannula Nasal Cannula Oxygen Flow Rate 2 2 01/22/25 14:00 01/22/25 14:00 01/22/25 14:15 Temperature Pulse Rate 70 76 Respiratory Rate 20 16 Blood Pressure 102/61 Pulse Oximetry 97 95 Oxygen Delivery Method Nasal Cannula Oxygen Flow Rate 2 01/22/25 14:15 01/22/25 14:30 01/22/25 14:30 Temperature Pulse Rate 75 Respiratory Rate 22 Blood Pressure 105/61 104/60 Pulse Oximetry 96 Oxygen Delivery Method Nasal Cannula Oxygen Flow Rate 2 01/22/25 14:45 01/22/25 14:45 01/22/25 15:00 Temperature Pulse Rate 73 Respiratory Rate 17 Blood Pressure 102/58 L 103/58 L Pulse Oximetry 97 Oxygen Delivery Method Oxygen Flow Rate 01/22/25 15:00 Temperature Pulse Rate 72 Respiratory Rate 18 Blood Pressure Pulse Oximetry 96 Oxygen Delivery Method Nasal Cannula Oxygen Flow Rate 2 Oxygen Delivery Method Nasal Cannula Oxygen Flow Rate 2 Narrative Exam Narrative: NAD, alert and oriented, fluent speech, calm. Normocephalic skull, EOMI, anicteric sclera, symmetric pupils. Oropharynx unremarkable, no droop. Neck supple, midline trachea, no adenopathy. Lungs clear, normal rate and effort. Heart regular, no murmur gallop or rub. Abdomen is soft, non distended and non tender. Extremities are free of edema. Skin is free of rash or lesions. Joints are not swollen or deformed. Judgment appears to be normal. Objective ECG Impression: Intervals [place] Rate: 75 P: 57 MI: 176 QRS: -27 QRSD: 86 T: 16 QT: 390 QTc: 435 Interpretive Statements Normal sinus rhythm Inferior infarct , age undetermined Imaging US - abdomen: Radiologist's impression: Diffusely increased hepatic echogenicity is nonspecific, but most commonly encountered in the setting of hepatic steatosis. However, other causes of hepatocellular disease are not excluded. Recommend clinical correlation. Chest x-ray: Radiologist's impression: No acute pulmonary process. Labs 01/22/25 11:20 01/22/25 11:20 Labs: Laboratory Results - last 24 hr 01/22/25 01/22/25 01/22/25 11:20 11:20 13:05 WBC 18.0 H RBC 4.86 Hgb 15.6 Hct 45.8 MCV 94.4 MCH 32.2 MCHC 34.1 RDW 14.0 Plt Count 205 Neut % (Auto) 69.8 Lymph % (Auto) 19.0 L [place] % (Auto) 10.9 Eos % (Auto) 0.0 L Baso % (Auto) 0.3 Neut # (Auto) 79567 H Lymph # (Auto) 3400 [place] # (Auto) 2000 H Eos # (Auto) 0 Baso # (Auto) 100 PT 12.5 INR 1.1 APTT 25 L Sodium 136 L Potassium 4.1 Chloride 101 Carbon Dioxide 27 BUN 21 H Creatinine 1.44 H Estimated GFR 53 L BUN/Creatinine Ratio 14.6 Glucose 170 H Lactate 1.8 Calcium 9.6 Magnesium 1.9 Total Bilirubin 1.4 H AST 337 H ALT 84 H Alkaline Phosphatase 111 Total Creatine Kinase 1391 H Troponin I 57.800 H* NT-Pro-B Natriuret Pep 2140 H Cancelled Total Protein 8.0 Albumin 4.6 Globulin 3.4 Albumin/Globulin Ratio 1.4 Lipase 52 Procalcitonin 0.306 01/22/25 14:05 WBC RBC Hgb Hct MCV MCH MCHC RDW Plt Count Neut % (Auto) Lymph % (Auto) [place] % (Auto) Eos % (Auto) Baso % (Auto) Neut # (Auto) Lymph # (Auto) [place] # (Auto) Eos # (Auto) Baso # (Auto) PT INR APTT Sodium Potassium Chloride Carbon Dioxide BUN Creatinine Estimated GFR BUN/Creatinine Ratio Glucose Lactate Calcium Magnesium Total Bilirubin AST ALT Alkaline Phosphatase Total Creatine Kinase Troponin I 47.800 H* NT-Pro-B Natriuret Pep Total Protein Albumin Globulin Albumin/Globulin Ratio Lipase Procalcitonin Assessment & Plan Assessment & Plan narrative: 1. Sepsis with unclear cause, active. 2. Hypotension, which is fluid responsive. Improved. 3. BPH 4. Hypertension 5. Elavated LFTs. PLAN: -empiric antibiotics and follow cultures. -continue IV fluids -monitor liver functions -consider MRCP if he fails to improve clinically. Anticipate 1 night hospital, supports observation status. Full resuscitation Time-Based Coding :: 35 min spent with patient and on the chart (including review of chart, obtaining history, exam, reviewing outside data, placing orders, documenting exam and treatment plan, and counseling patient) on 01/22. Quality MIPS - Admit I confirm the patient?s Advance Care Plan is present, Code status is documented, Surrogate decision maker is in patient?s record [If Yes, STOP here]: Yes MIPS - Meds 'Current medications' to include all prescriptions, [id number] products, herbals, cannabis/cannabidiol products, and vitamin/mineral/dietary (nutritional) supplements. I have utilized all available resources to obtain, update, or review the patient?s current medications. [If Yes, STOP here]: Yes
--- NOTE | 2025-01-22 17:08 | PC.NURSE ---
Called for RN report at [phone] but RN unavailable. Will call back.
--- NOTE | 2025-01-22 17:36 | PC.NURSE ---
Hospitalist originally accepted patient and placed a series of orders. Provider called back and talked to emergency room provider and unaccepted patient. Please defer to provider note regarding this. This RN was asked to rescind all orders placed by hospitalist.
[2025-01-22 18:54] LABS: Appearance Urine UA CLEAR; Bilirubin Urine UA NEGATIVE (NEGATIVE); Color Urine UA YELLOW; Glucose Urine UA NEGATIVE (Negative); Ketones Urine UA NEGATIVE (NEGATIVE); Leukocyte Esterase Urine UA NEGATIVE (NEGATIVE); Nitrite Urine UA NEGATIVE (Negative); Occult Blood Urine UA NEGATIVE (Negative); Protein Urine UA NEGATIVE (Negative); Specific Gravity Urine UA 1.020 (1.000-1.035); Urobilinogen Urine UA 1.0 E.U./dL (0.2); pH Urine UA 6.0 (4.5-8.0)
[2025-01-22 19:24] LABS: Culture Indicated Urine Cult Not Indicated
[2025-01-22 21:41] LABS: PTT Partial Thromboplastin Tim 50 SECONDS (25.1-36.5)
--- NOTE | 2025-01-22 22:31 | PC.NURSE ---
PTT resulted at 50, at goal for heparin drip. No change to heparin infusion.
[2025-01-23] VITALS: BP 111/59; PULSE 85; RESP 16; O2SAT 94
[2025-01-23 00:30] VITALS: BP 133/70; PULSE 87; RESP 16; O2SAT 94
--- NOTE | 2025-01-23 00:36 | PC.NURSE ---
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
== END 2025-01-23 00:57 | disposition short-term general hospital (02) ==
LOC: ED 12:38 → AC 16:53 → ED 20:17
PROVIDERS: Emergency Provider Emergency Medicine; PCP Student in an Organized Health Care Education/Training Program; Referring Provider Student in an Organized Health Care Education/Training Program
DX: I21.4 Non-ST elevation (NSTEMI) myocardial infarction (principal); A41.9 Sepsis, unspecified organism; R55 Syncope and collapse; Z87.891 Personal history of nicotine dependence
CPT/HCPCS: 36415; 71046; 76705; 80053; 81001; 82550; 83605; 83690; 83735; 83880; 84145; 84484; 85025; 85610; 85730; 87040; 93005; 96365; 96366; 96367; 96368; 99285; 99291; 99292; J1644; J2543; J3375; J7030; J7050